=== PATIENT | female | born 1975 | race African-American/Black ===

== ENCOUNTER 2016-10-24 15:03 | Emergency (ER) | payer BC ==
[~2016-10-24] VITALS: Wt 97.0 kg
[2016-10-24] MEDS ORDERED: ONDA4TAB14 PO (16:00)
[2016-10-24] MEDS ORDERED: CIPR500T4 PO (16:00)
[2016-10-24] MEDS ORDERED: DIPH1TAB PO (16:00)
--- NOTE | 2016-10-24 16:02 | ERD ---
ER Documentation Chief Complaint Date/Time DATE: 10/24/16 TIME: 16:01 Chief Complaint vomiting a nd diarrhea HPI This a 40-year-old female who had tongue to eat last night. She said about 6-8 hours later started getting nauseated and having nausea and vomiting is nonbilious and nonbloody. She has says that she has not vomited since around 11 PM last night but has had some diarrhea today has been off and on that is nonbloody. He is having watery loose stools. She has no abdominal pain whatsoever. She feels like she has food poisoning. She has no fever chills. She is very well-appearing and able to tolerate p.o. food and water. ROS All systems reviewed and are negative except as per history of present illness. Medications Home Meds Active Scripts Ciprofloxacin Hcl* (Ciprofloxacin Hcl*) 500 Mg Tablet, 500 MG PO BID for 6 Days , #3 TAB Prov:YOVANY FIGUEROA. DO 10/24/16 Ondansetron (Ondansetron Odt) 4 Mg Tab.rapdis, 4 MG PO Q6H Y for NAUSEA AND/OR VOMITING, #14 TAB Prov:ELIEZER FIGUEROAS A. DO 10/24/16 Diphenoxylate HCl/Atropine (Lomotil 2.5-0.025 mg Tablet) 1 Each Tablet, 1 TAB PO Q6H Y for DIARRHEA, #20 TAB Prov:YAHAIRA FIGUEROASTOLOS A. DO 10/24/16 PMhx/Soc Medical and Surgical Hx: pt denies Medical Hx History of Surgery: Yes (breast sx, x 3) Anesthesia Reaction: No Hx Neurological Disorder: No Hx Respiratory Disorders: No Hx Cardiac Disorders: No Hx Psychiatric Problems: No Hx Miscellaneous Medical Probl: No Hx Alcohol Use: Yes (socially) Hx Substance Use: No Hx Tobacco Use: Yes (quit smoking 2013) Smoking Status: Former smoker FmHx Family History: No coronary disease Physical Exam Vitals Vital Signs Date Time Temp Pulse Resp B/P Pulse Ox O2 Delivery O2 Flow Rate FiO2 10/24/16 15:06 98.0 73 18 149/78 99 Physical Exam Const: [Well-developed, well-nourished] Head: [Atraumatic, normocephalic] Eyes: [Normal Conjunctiva, PERRLA, EOMI, normal sclera, no nystagmus] ENT: [Normal External Ears, Nose and Mouth, moist mucus membranes.] Neck: [Full range of motion. No meningismus, no lymphadenopathy.] Resp: [Clear to auscultation bilaterally, no wheezing, rhonchi, rales] Cardio: [Regular rate and rhythm, no murmurs, S1 S2 present] Abd: [Soft, non tender x 4, non distended. Normal bowel sounds, no guarding or rebound, no pulsitile abdominal masses or bruits] Skin: [No petechiae or rashes, no ecchymosis , no maculopapular rash] Back: [No midline or flank tenderness] Ext: [No cyanosis, or edema, FROM x 4, normal inspection, neurovascularly intact x 4] Neur: [Awake and alert, STR 5/5 x 4, sensation intact x 4, no focal findings, cerebellum intact] Psych: [Normal Mood and Affect] Procedures/MDM Patient likely has gastroenteritis/food poisoning. Will treat symptomatically. She is likely on the tail end of this Departure Diagnosis: Primary Impression: Gastroenteritis Condition: Stable Patient Instructions: Food Poisoning Or Gastroenteritis (6Y-Adult) YOVANY FIGUEROA DO Oct 24, 2016 16:02
== END 2016-10-24 16:28 | disposition home or self-care (01) ==
LOC: FTE 15:03
DX: K52.9 Noninfective gastroenteritis and colitis, unspecified (principal); Z87.891 Personal history of nicotine dependence
CPT/HCPCS: 99284